=== PATIENT | male | born 1960 | race Two or more races ===

== ENCOUNTER 2017-05-26 01:18 | Inpatient (IN) | payer OTHER ==
[~2017-05-26] VITALS: Ht 175.3 cm; Wt 86.2 kg
[2017-05-26 01:40] VITALS: Ht 175.3 cm; Wt 86.2 kg
[2017-05-26 03:10] LABS: PLATELET COUNT 136 x10^3mcL (130-400); RED CELL DISTRIBUTION WIDTH 13.6 % (11.5-14.5)
[2017-05-26 03:11] LABS: BASOPHIL % 2.5 % (0-2)
[2017-05-26 03:17] LABS: CALCIUM 8.5 mg/dL (8.5-10.1); CARBON DIOXIDE 28.7 mmol/L (21-32); CHLORIDE SERUM 110 mmol/L (98-107); GFR1 > 60 mL/min; GLUCOSE SERUM 105 mg/dL (74-106); POTASSIUM SERUM 3.4 mmol/L (3.5-5.1); SODIUM SERUM 146 mmol/L (136-145)
[2017-05-26 03:30] LABS: ALKALINE PHOSPHATASE 96 U/L (46-116); ALT/SGPT 28 U/L (16-63); AST/SGOT 36 U/L (15-37); BILIRUBIN TOTAL 0.4 mg/dL (0.20-1.00); FREE T4 1.01 ng/dL (0.76-1.46); TOTAL PROTEIN, SERUM 6.9 g/dL (6.4-8.2)
[2017-05-26 03:34] LABS: ALBUMIN 3.2 g/dL (3.4-5.0)
[2017-05-26] MEDS ORDERED: ZESTRIL20 MG (05:25)
[2017-05-26] MEDS ORDERED: ASPIR 8181 MG (05:26)
[2017-05-26 07:58] LABS: MAGNESIUM 1.8 mg/dL (1.8-2.4); PHOSPHOROUS 4.5 mg/dL (2.5-4.9)
[2017-05-26 07:59] LABS: CHOLESTEROL/HDL RATIO 1.7
[2017-05-26 08:05] LABS: FREE T4 1.02 ng/dL (0.76-1.46); FREE THYROXINE INDEX 2.4 ug/dL (1.4-4.5); T4(THYROXINE) 6.8 ug/dL (4.7-13.3)
[2017-05-26 08:17] VITALS: BP 143/84
[2017-05-26 08:55] LABS: T3 TOTAL 0.84 ng/mL
[2017-05-26 10:10] VITALS: BP 151/78
[2017-05-26 10:35] VITALS: BP 124/73
[2017-05-26 12:10] VITALS: BP 150/77
[2017-05-26 17:05] VITALS: BP 176/83
[2017-05-26 18:46] LABS: microscopic required? NO
[2017-05-26 19:08] LABS: UA SPECIFIC GRAVITY <=1.005 (1.005-1.035); urine erythrocyte NEGATIVE (NEGATIVE)
[2017-05-26 19:25] LABS: AMPHETAMINE QUAL UR NONE DETECTED (NEG <=1000)
[2017-05-26 21:48] VITALS: BP 152/73
[2017-05-27 06:17] VITALS: BP 143/78
[2017-05-27 06:56] LABS: BASOPHIL % 0.4 % (0-2)
[2017-05-27 07:05] LABS: CALCIUM 7.8 mg/dL (8.5-10.1); CARBON DIOXIDE 25.8 mmol/L (21-32); CHLORIDE SERUM 104 mmol/L (98-107); CREATININE SERUM 0.8 mg/dL (0.7-1.3); GFR1 > 60 mL/min; GLUCOSE SERUM 104 mg/dL (74-106); POTASSIUM SERUM 3.5 mmol/L (3.5-5.1); SODIUM SERUM 140 mmol/L (136-145)
[2017-05-27 07:12] LABS: PLATELET COUNT 91 x10^3mcL (130-400); RED CELL DISTRIBUTION WIDTH 14.8 % (11.5-14.5)
[2017-05-27 09:00] VITALS: BP 168/80
[2017-05-27] MEDS ORDERED: NOR5 PO (11:25)
[2017-05-27] MEDS ORDERED: TOPROL XL25 MG PO (11:57)
[2017-05-27 11:58] VITALS: BP 162/88
[2017-05-27] MEDS ORDERED: TOPROL XL25 MG (11:58)
[2017-05-27 12:01] VITALS: BP 162/88
== END 2017-05-27 12:27 | disposition left against medical advice (07) | DRG 48 ==
LOC: ED 01:18 → DU 04:22
PROVIDERS: Emergency Medicine; Family Medicine
DX: G90.8 Other disorders of autonomic nervous system (principal); S09.90XA Unspecified injury of head, initial encounter; E44.0 Moderate protein-calorie malnutrition; I48.91 Unspecified atrial fibrillation; R00.1 Bradycardia, unspecified; I10 Essential (primary) hypertension; Z88.0 Allergy status to penicillin; F10.10 Alcohol abuse, uncomplicated; Z82.49 Family history of ischemic heart disease and other diseases of the circulatory system; Z79.82 Long term (current) use of aspirin; W18.39XA Other fall on same level, initial encounter; Y93.89 Activity, other specified; Y92.89 Other specified places as the place of occurrence of the external cause; Y99.8 Other external cause status; Y90.9 Presence of alcohol in blood, level not specified; Z68.28 Body mass index [BMI] 28.0-28.9, adult; M94.0 Chondrocostal junction syndrome [Tietze]; K21.9 Gastro-esophageal reflux disease without esophagitis
CPT/HCPCS: 83880; 84439; 90658; 90714; G0480; J7030; Q0092

== ENCOUNTER 2017-10-28 15:11 | Emergency (ER) | payer OTHER ==
[~2017-10-28] VITALS: Ht 175.3 cm; Wt 74.8 kg
[~2017-10-28 15:11] MED LIST: ASPIR 8181 MG; NOR5 PO; TOPROL XL25 MG; TOPROL XL25 MG PO; ZESTRIL20 MG
[2017-10-28 15:18] VITALS: Ht 175.3 cm; Wt 74.8 kg
[2017-10-28 18:18] VITALS: BP 139/74
== END 2017-10-28 18:38 | disposition home or self-care (01) ==
LOC: ED 15:11
DX: S01.511A Laceration without foreign body of lip, initial encounter (principal); S06.0X0A Concussion without loss of consciousness, initial encounter; S16.1XXA Strain of muscle, fascia and tendon at neck level, initial encounter; I10 Essential (primary) hypertension; Z88.0 Allergy status to penicillin; W01.0XXA Fall on same level from slipping, tripping and stumbling without subsequent striking against object, initial encounter; Y93.89 Activity, other specified; Y92.89 Other specified places as the place of occurrence of the external cause; Y99.8 Other external cause status
CPT/HCPCS: J1885; J2270

== ENCOUNTER 2018-06-09 21:51 | Emergency (ER) | payer OTHER ==
[~2018-06-09] VITALS: Ht 175.3 cm; Wt 86.2 kg
[2018-06-09 22:12] VITALS: Ht 175.3 cm; Wt 86.2 kg
[2018-06-09 22:42] VITALS: BP 131/81
== END 2018-06-09 22:42 | disposition other institution (70) ==
LOC: ED 21:51
DX: Z02.89 Encounter for other administrative examinations (principal)

== ENCOUNTER 2018-09-14 07:15 | Emergency (ER) | payer OTHER ==
[~2018-09-14] VITALS: Ht 172.7 cm; Wt 79.4 kg
[2018-09-14 07:22] VITALS: Ht 172.7 cm; Wt 79.4 kg
[2018-09-14 08:46] LABS: BILIRUBIN TOTAL 0.5 mg/dL (0.20-1.00); CALCIUM 9.9 mg/dL (8.5-10.1); CARBON DIOXIDE 23.4 mmol/L (21-32); CREATININE SERUM 2.4 mg/dL (0.7-1.3)
[2018-09-14 08:47] LABS: TOTAL PROTEIN, SERUM 8.6 g/dL (6.4-8.2)
[2018-09-14 08:49] LABS: POTASSIUM SERUM 4.2 mmol/L (3.5-5.1)
[2018-09-14 08:55] LABS: PLATELET COUNT 173 x10^3mcL (130-400); RED CELL DISTRIBUTION WIDTH 13.7 % (11.5-14.5)
[2018-09-14 09:31] LABS: BAND NEUTROPHIL 4 % (0-10); BASOPHIL 0 % (0-2); MONOCYTE 2 % (0-7); SEGMENTED NEUTROPHILS 76 % (37-75)
[2018-09-14 09:32] LABS: PLATELET MORPHOLOGY PLATELETS DECREASED; rbc morphology (normal/abnorm) ABNORMAL (NORMAL)
[2018-09-14 13:48] VITALS: BP 134/82
== END 2018-09-14 13:48 | disposition home or self-care (01) ==
LOC: ED 07:15
PROVIDERS: Emergency Medicine
DX: R07.89 Other chest pain (principal); R10.13 Epigastric pain; R06.02 Shortness of breath; I10 Essential (primary) hypertension; F41.9 Anxiety disorder, unspecified; Z88.0 Allergy status to penicillin
CPT/HCPCS: J2060; J2405; J3490; J7030; Q0092

== ENCOUNTER 2019-03-16 10:48 | Inpatient (IN) | payer OTHER ==
[~2019-03-16] VITALS: Ht 172.7 cm; Wt 76.9 kg
[2019-03-16 11:28] LABS: PLATELET COUNT 285 x10^3mcL (130-400); RED CELL DISTRIBUTION WIDTH 14.3 % (11.5-14.5)
[2019-03-16 11:40] LABS: BASOPHIL % 0 % (0-2)
[2019-03-16 11:43] LABS: CALCIUM 9.4 mg/dL (8.5-10.1); CARBON DIOXIDE 20.2 mmol/L (21-32); CREATININE SERUM 3.4 mg/dL (0.7-1.3); POTASSIUM SERUM 4.1 mmol/L (3.5-5.1); TOTAL PROTEIN, SERUM 9.1 g/dL (6.4-8.2)
[2019-03-16 11:44] LABS: BILIRUBIN TOTAL 0.9 mg/dL (0.20-1.00)
[2019-03-16 13:51] LABS: CHOLESTEROL/HDL RATIO 3.2
[2019-03-16 14:01] LABS: MAGNESIUM 1.5 mg/dL (1.8-2.4); PHOSPHOROUS 2.9 mg/dL (2.5-4.9)
[2019-03-16 14:15] VITALS: BP 113/67
[2019-03-16 14:39] LABS: T3 TOTAL 0.53 ng/mL
[2019-03-16 15:03] LABS: FREE T4 1.31 ng/dL (0.76-1.46); FREE THYROXINE INDEX 3.3 ug/dL (1.4-4.5); T4(THYROXINE) 8.7 ug/dL (4.7-13.3)
[2019-03-16 15:52] VITALS: BP 113/65
[2019-03-16 19:33] VITALS: BP 91/48
[2019-03-17 04:45] VITALS: BP 104/60
[2019-03-17 05:26] LABS: PLATELET COUNT 258 x10^3mcL (130-400)
[2019-03-17 05:30] LABS: BASOPHIL % 0 % (0-2); RED CELL DISTRIBUTION WIDTH 14.8 % (11.5-14.5)
[2019-03-17 05:38] LABS: CARBON DIOXIDE 17.5 mmol/L (21-32); POTASSIUM SERUM 3.7 mmol/L (3.5-5.1)
[2019-03-17 05:39] LABS: CALCIUM 8.7 mg/dL (8.5-10.1); CREATININE SERUM 3.1 mg/dL (0.7-1.3)
[2019-03-17 08:02] VITALS: BP 107/67
[2019-03-17 11:47] VITALS: BP 104/59
[2019-03-17 15:39] LABS: microscopic required? YES; urine erythrocyte 1+ (NEGATIVE)
[2019-03-17 21:07] VITALS: BP 113/66
[2019-03-18 05:52] VITALS: BP 124/73
[2019-03-18 07:00] LABS: BASOPHIL % 0.2 % (0-2); PLATELET COUNT 283 x10^3mcL (130-400); RED CELL DISTRIBUTION WIDTH 14.4 % (11.5-14.5)
[2019-03-18 07:36] LABS: CALCIUM 8.6 mg/dL (8.5-10.1); CARBON DIOXIDE 19.8 mmol/L (21-32); CREATININE SERUM 2.5 mg/dL (0.7-1.3); POTASSIUM SERUM 4.2 mmol/L (3.5-5.1)
[2019-03-18 07:37] LABS: MAGNESIUM 2.7 mg/dL (1.8-2.4)
[2019-03-18 08:39] VITALS: BP 145/77
[2019-03-18 12:32] VITALS: BP 111/60
[2019-03-18 17:02] VITALS: BP 143/87
[2019-03-18 20:02] VITALS: BP 150/73
[2019-03-19 04:50] VITALS: BP 111/61
[2019-03-19 06:22] LABS: BASOPHIL % 0.6 % (0-2); PLATELET COUNT 301 x10^3mcL (130-400); RED CELL DISTRIBUTION WIDTH 14.5 % (11.5-14.5)
[2019-03-19 06:54] LABS: CARBON DIOXIDE 21.2 mmol/L (21-32); CREATININE SERUM 2.4 mg/dL (0.7-1.3); POTASSIUM SERUM 4.7 mmol/L (3.5-5.1)
[2019-03-19 07:56] VITALS: BP 123/71
[2019-03-19 11:53] VITALS: BP 125/64
[2019-03-19 16:11] VITALS: BP 141/71
[2019-03-19 19:23] VITALS: BP 127/67
[2019-03-20 05:32] VITALS: BP 105/58
[2019-03-20 07:08] LABS: CALCIUM 9.2 mg/dL (8.5-10.1); CREATININE SERUM 2.3 mg/dL (0.7-1.3)
[2019-03-20 07:17] LABS: BASOPHIL % 0.3 % (0-2); PLATELET COUNT 339 x10^3mcL (130-400); RED CELL DISTRIBUTION WIDTH 14.7 % (11.5-14.5)
[2019-03-20 07:23] VITALS: BP 133/67
[2019-03-20] MEDS ORDERED: IMD60 PO (08:00)
[2019-03-20] MEDS ORDERED: FLO4 PO (08:00)
[2019-03-20] MEDS ORDERED: METOPROLOL TART25 M1 PO (08:01)
[2019-03-20] MEDS ORDERED: LIPI10 PO (08:01)
[2019-03-20] MEDS ORDERED: PROS5 PO (08:02)
[2019-03-20] MEDS ORDERED: APAP/HYDROCODON1 T13 PO (08:03)
[2019-03-20 08:54] VITALS: BP 133/67
== END 2019-03-20 09:27 | disposition home or self-care (01) | DRG 463 ==
LOC: ED 10:48 → DU 12:37 → MU 03-17 15:09 → DU 03-18 08:27 → MU 03-19 10:25
PROVIDERS: ADMIT Student in an Organized Health Care Education/Training Program
DX: N13.6 Pyonephrosis (principal); N17.9 Acute kidney failure, unspecified; E44.1 Mild protein-calorie malnutrition; E87.1 Hypo-osmolality and hyponatremia; N13.8 Other obstructive and reflux uropathy; F41.9 Anxiety disorder, unspecified; N40.1 Benign prostatic hyperplasia with lower urinary tract symptoms; R07.89 Other chest pain; R07.9 Chest pain, unspecified; I12.9 Hypertensive chronic kidney disease with stage 1 through stage 4 chronic kidney disease, or unspecified chronic kidney disease; N18.9 Chronic kidney disease, unspecified; Z79.82 Long term (current) use of aspirin; Z88.0 Allergy status to penicillin; Z79.899 Other long term (current) drug therapy; Z23 Encounter for immunization; Z68.23 Body mass index [BMI] 23.0-23.9, adult
CPT/HCPCS: 82962; 84439; 90658; G0378; J0696; J2060; J2270; J2405; J3475; J7030; Q0092

== ENCOUNTER 2019-06-16 05:58 | Emergency (ER) | payer OTHER ==
[~2019-06-16] VITALS: Ht 172.7 cm; Wt 79.1 kg
[~2019-06-16 05:58] MED LIST changes: +APAP/HYDROCODON1 T13 PO; +FLO4 PO; +IMD60 PO; +LIPI10 PO; +METOPROLOL TART25 M1 PO; +PROS5 PO
[2019-06-16 06:10] VITALS: Ht 172.7 cm; Wt 79.1 kg
[2019-06-16 07:35] LABS: CALCIUM 9.3 mg/dL (8.5-10.1); CARBON DIOXIDE 25.5 mmol/L (21-32); CHLORIDE SERUM 98 mmol/L (98-107); CREATININE SERUM 2.1 mg/dL (0.7-1.3); GFR1 35 mL/min; GLUCOSE SERUM 110 mg/dL (74-106); POTASSIUM SERUM 4.3 mmol/L (3.5-5.1); SODIUM SERUM 136 mmol/L (136-145)
[2019-06-16 07:39] LABS: ALBUMIN 3.9 g/dL (3.4-5.0); ALKALINE PHOSPHATASE 87 U/L (46-116); ALT/SGPT 79 U/L (16-63); AST/SGOT 114 U/L (15-37); BILIRUBIN TOTAL 1.14 mg/dL (0.20-1.00); MAGNESIUM 1.5 mg/dL (1.8-2.4); TOTAL PROTEIN, SERUM 7.9 g/dL (6.4-8.2)
[2019-06-16 07:44] LABS: PLATELET COUNT 80 x10^3mcL (130-400); RED CELL DISTRIBUTION WIDTH 15.3 % (11.5-14.5)
[2019-06-16 10:16] LABS: BAND NEUTROPHIL 0 % (0-10); BASOPHIL 0 % (0-2); MONOCYTE 11 % (0-7); SEGMENTED NEUTROPHILS 65 % (37-75); rbc morphology (normal/abnorm) NORMAL (NORMAL)
[2019-06-16 10:26] VITALS: BP 141/82
== END 2019-06-16 10:26 | disposition home or self-care (01) ==
LOC: ED 05:58
PROVIDERS: Emergency Medicine
DX: E83.42 Hypomagnesemia (principal); R53.1 Weakness; F10.20 Alcohol dependence, uncomplicated; D61.818 Other pancytopenia; I10 Essential (primary) hypertension
CPT/HCPCS: G0480; J2060; J3411; J3475

== ENCOUNTER 2019-07-22 12:22 | Emergency (ER) | payer OTHER, SELFPAY ==
[~2019-07-22] VITALS: Ht 152.4 cm; Wt 78.9 kg
[2019-07-22 12:25] VITALS: Ht 152.4 cm; Wt 78.9 kg
[2019-07-22 13:54] VITALS: BP 144/75
== END 2019-07-22 13:54 | disposition home or self-care (01) ==
LOC: ED 12:22
DX: Z20.828 Contact with and (suspected) exposure to other viral communicable diseases (principal); R05 Cough; R06.02 Shortness of breath; R09.89 Other specified symptoms and signs involving the circulatory and respiratory systems
CPT/HCPCS: Q0092; U0003-CS

== ENCOUNTER 2019-08-26 12:45 | Emergency (ER) | payer OTHER ==
[~2019-08-26] VITALS: Ht 170.2 cm; Wt 90.7 kg
[2019-08-26 12:53] VITALS: Ht 170.2 cm; Wt 90.7 kg
[2019-08-26 13:22] LABS: BASOPHIL % 0.5 % (0-2); PLATELET COUNT 263 x10^3mcL (130-400)
[2019-08-26 13:29] LABS: RED CELL DISTRIBUTION WIDTH 16.2 % (11.5-14.5)
[2019-08-26 14:25] LABS: CALCIUM 8.2 mg/dL (8.5-10.1); CARBON DIOXIDE 22.6 mmol/L (21-32); CREATININE SERUM 1.6 mg/dL (0.7-1.3); POTASSIUM SERUM 3.9 mmol/L (3.5-5.1)
[2019-08-26 14:30] LABS: ALBUMIN 3.6 g/dL (3.4-5.0); BILIRUBIN TOTAL 0.3 mg/dL (0.20-1.00); TOTAL PROTEIN, SERUM 7.8 g/dL (6.4-8.2)
[2019-08-26 18:06] LABS: microscopic required? NO
[2019-08-26 18:20] LABS: urine erythrocyte NEGATIVE (NEGATIVE)
[2019-08-26 18:29] LABS: AMPHETAMINE QUAL UR NONE DETECTED (See below)
[2019-08-27 05:19] VITALS: BP 176/87
== END 2019-08-27 05:32 | disposition home or self-care (01) ==
LOC: ED 12:45
PROVIDERS: Emergency Medicine
DX: F10.129 Alcohol abuse with intoxication, unspecified (principal); I10 Essential (primary) hypertension; Z88.0 Allergy status to penicillin
CPT/HCPCS: G0480; J7030; Q0092

== ENCOUNTER 2019-11-23 10:57 | Emergency (ER) | payer OTHER, SELFPAY ==
[~2019-11-23] VITALS: Ht 175.3 cm; Wt 86.2 kg
[2019-11-23 10:58] VITALS: Ht 175.3 cm; Wt 86.2 kg
[2019-11-23 12:35] LABS: microscopic required? NO
[2019-11-23 12:54] LABS: UA SPECIFIC GRAVITY <=1.005 (1.005-1.035); urine erythrocyte NEGATIVE (NEGATIVE)
[2019-11-23 13:07] LABS: CALCIUM 8.5 mg/dL (8.5-10.1); CARBON DIOXIDE 19.6 mmol/L (21-32); CHLORIDE SERUM 102 mmol/L (98-107); CREATININE SERUM 1.5 mg/dL (0.7-1.3); GFR1 51 mL/min; GLUCOSE SERUM 96 mg/dL (74-106); SODIUM SERUM 137 mmol/L (136-145)
[2019-11-23 13:11] LABS: BASOPHIL % 0.2 % (0-2); PLATELET COUNT 184 x10^3mcL (130-400); RED CELL DISTRIBUTION WIDTH 14.6 % (11.5-14.5)
[2019-11-23 13:13] LABS: ALBUMIN 3.8 g/dL (3.4-5.0); ALKALINE PHOSPHATASE 118 U/L (46-116); ALT/SGPT 76 U/L (16-63); AST/SGOT 119 U/L (15-37); BILIRUBIN TOTAL 0.44 mg/dL (0.20-1.00); C REACTIVE PROTEIN 0.3 mg/dL (<=0.9); LACTIC DEHYDROGENASE (LDH) 179 U/L (100-190)
[2019-11-23 14:35] VITALS: BP 150/92
== END 2019-11-23 14:43 | disposition home or self-care (01) ==
LOC: ED 10:57
PROVIDERS: Emergency Medicine
DX: R05 Cough (principal); R06.02 Shortness of breath; R07.89 Other chest pain; R50.9 Fever, unspecified; J02.9 Acute pharyngitis, unspecified; R51 Headache; I10 Essential (primary) hypertension; Z20.828 Contact with and (suspected) exposure to other viral communicable diseases; Z88.0 Allergy status to penicillin
CPT/HCPCS: 36600; 83880; 85378; 87804; G0480; Q0092; U0003-CS

== ENCOUNTER 2020-01-29 00:45 | Emergency (ER) | payer OTHER ==
[~2020-01-29] VITALS: Ht 175.3 cm; Wt 87.5 kg
[2020-01-29 01:07] VITALS: Ht 175.3 cm; Wt 87.5 kg
[2020-01-29 05:01] LABS: RED CELL DISTRIBUTION WIDTH 13.2 % (11.5-14.5)
[2020-01-29 05:02] LABS: PLATELET COUNT 121 x10^3mcL (130-400)
[2020-01-29 05:15] LABS: BAND NEUTROPHIL 1 % (0-10); MONOCYTE 16 % (0-7); SEGMENTED NEUTROPHILS 40 % (37-75); rbc morphology (normal/abnorm) NORMAL (NORMAL)
[2020-01-29 05:45] LABS: CALCIUM 8.8 mg/dL (8.5-10.1); CARBON DIOXIDE 23.4 mmol/L (21-32); CREATININE SERUM 1.9 mg/dL (0.7-1.3); POTASSIUM SERUM 3.8 mmol/L (3.5-5.1)
[2020-01-29 05:50] LABS: ALBUMIN 3.6 g/dL (3.4-5.0); BILIRUBIN TOTAL 0.55 mg/dL (0.20-1.00); TOTAL PROTEIN, SERUM 7.4 g/dL (6.4-8.2)
[2020-01-29 06:25] VITALS: BP 114/68
== END 2020-01-29 06:25 | disposition home or self-care (01) ==
LOC: ED 00:45
PROVIDERS: Emergency Medicine
DX: R21 Rash and other nonspecific skin eruption (principal); L29.9 Pruritus, unspecified; I10 Essential (primary) hypertension; Z20.828 Contact with and (suspected) exposure to other viral communicable diseases; Z88.0 Allergy status to penicillin
CPT/HCPCS: Q0162

== ENCOUNTER → 2020-02-13 | Emergency (ER) | payer OTHER ==
[~2020-02-13] VITALS: Ht 175.3 cm; Wt 86.2 kg
[2020-02-13 11:00] VITALS: Ht 175.3 cm; Wt 86.2 kg
[2020-02-13 18:57] VITALS: BP 185/106
== END ==
LOC: ED 10:33
DX: L40.9 Psoriasis, unspecified (principal); A51.49 Other secondary syphilitic conditions; R21 Rash and other nonspecific skin eruption; I10 Essential (primary) hypertension; Z88.0 Allergy status to penicillin; Z98.890 Other specified postprocedural states
CPT/HCPCS: J7512; Q0162

== ENCOUNTER 2020-02-24 15:49 | Emergency (ER) | payer OTHER ==
[~2020-02-24] VITALS: Ht 167.6 cm; Wt 498.0 kg
[2020-02-24 18:32] VITALS: BP 144/90; Ht 167.6 cm; Wt 498.0 kg
== END 2020-02-24 22:30 | disposition home or self-care (01) ==
LOC: ED 15:49
DX: F10.20 Alcohol dependence, uncomplicated (principal); I10 Essential (primary) hypertension; Z88.0 Allergy status to penicillin

== ENCOUNTER 2020-04-06 12:09 | Inpatient (IN) | payer OTHER ==
[~2020-04-06] VITALS: Ht 175.3 cm; Wt 85.7 kg
[2020-04-06 12:14] VITALS: Ht 175.3 cm; Wt 85.7 kg
[2020-04-06 12:52] LABS: RED CELL DISTRIBUTION WIDTH 14.2 % (12.1-16.2)
[2020-04-06 12:54] LABS: BASOPHIL % 0.9 % (0.2-1.5)
[2020-04-06 13:02] LABS: PLATELET COUNT 122 x10^3mcL (152-348)
[2020-04-06 13:17] LABS: CALCIUM 8.9 mg/dL (8.5-10.1); CARBON DIOXIDE 23.6 mmol/L (21-32); CREATININE SERUM 1.6 mg/dL (0.7-1.3); POTASSIUM SERUM 4.1 mmol/L (3.5-5.1)
[2020-04-06 13:22] LABS: BILIRUBIN TOTAL 1.1 mg/dL (0.20-1.00)
[2020-04-06 13:39] LABS: CHOLESTEROL/HDL RATIO 1.8
[2020-04-06 13:45] LABS: FREE T4 1.13 ng/dL (0.76-1.46); FREE THYROXINE INDEX 3.2 ug/dL (1.4-4.5); T4(THYROXINE) 9.5 ug/dL (4.7-13.3)
[2020-04-06 13:57] LABS: T3 TOTAL 1.23 ng/mL
[2020-04-06 16:01] LABS: microscopic required? YES; urine erythrocyte NEGATIVE (NEGATIVE)
[2020-04-06 20:01] VITALS: BP 144/69
[2020-04-06 20:43] VITALS: BP 139/96; BP 144/69
[2020-04-07 05:14] VITALS: BP 150/69
[2020-04-07 05:43] LABS: BASOPHIL % 0.8 % (0.2-1.5); RED CELL DISTRIBUTION WIDTH 14.4 % (12.1-16.2)
[2020-04-07 05:47] LABS: PLATELET COUNT 103 x10^3mcL (152-348)
[2020-04-07 06:08] LABS: ALBUMIN 3.4 g/dL (3.4-5.0); BILIRUBIN TOTAL 1.3 mg/dL (0.20-1.00); CALCIUM 8.6 mg/dL (8.5-10.1); CARBON DIOXIDE 27.5 mmol/L (21-32); CREATININE SERUM 1.9 mg/dL (0.7-1.3); MAGNESIUM 1.1 mg/dL (1.8-2.4); TOTAL PROTEIN, SERUM 6.8 g/dL (6.4-8.2)
[2020-04-07 08:42] VITALS: BP 153/68
[2020-04-07] MEDS ORDERED: GOOD NEIGHBOR P20 M2 PO (11:06)
== END 2020-04-07 12:14 | disposition home or self-care (01) | DRG 241 ==
LOC: ED 12:09 → DU 14:30
PROVIDERS: Specialist; ADMIT Hospitalist; ATTEND Hospitalist
DX: K29.70 Gastritis, unspecified, without bleeding (principal); E66.9 Obesity, unspecified; K21.9 Gastro-esophageal reflux disease without esophagitis; I10 Essential (primary) hypertension; E78.5 Hyperlipidemia, unspecified; F41.9 Anxiety disorder, unspecified; N40.0 Benign prostatic hyperplasia without lower urinary tract symptoms; Z88.0 Allergy status to penicillin; Z82.49 Family history of ischemic heart disease and other diseases of the circulatory system; Z68.28 Body mass index [BMI] 28.0-28.9, adult; Z20.822 Contact with and (suspected) exposure to COVID-19
CPT/HCPCS: 83880; 84439; G0378; J1644; J1885; J7030; U0003